=== PATIENT | female | born 1990 | race Caucasian/White ===

== ENCOUNTER 2019-09-22 23:36 | Emergency (ER) | payer MEDICAID, OTHER ==
[~2019-09-22] VITALS: Ht 167.6 cm; Wt 63.6 kg
[~2019-09-22 23:36] MED LIST: CEPH500C5 PO; DIPH-423 PO
[2019-09-22 23:39] VITALS: BP 133/81
[2019-09-23] MEDS ORDERED: HYDROcodone/acetaminophen 10/325mg tab PO ONE (00:25)
[2019-09-23] MEDS ORDERED: naproxen 500mg tablet PO ONE (00:25)
[2019-09-23] MEDS ORDERED: amox tr/potassium clavulanate 875/125mg TAB PO ONE (00:25)
[2019-09-23] MEDS ORDERED: AMOX-580 PO (00:27)
[2019-09-23] MEDS ORDERED: HYDR-4383 PO (00:27)
[2019-09-23] MEDS ORDERED: NAPR-56 PO (00:27)
== END 2019-09-23 00:52 | disposition home or self-care (01) ==
LOC: ER 23:37
DX: K08.89 Other specified disorders of teeth and supporting structures (principal); K03.2 Erosion of teeth; G89.29 Other chronic pain; F32.9 Major depressive disorder, single episode, unspecified; R00.0 Tachycardia, unspecified; Z79.2 Long term (current) use of antibiotics; Z79.899 Other long term (current) drug therapy; Z56.0 Unemployment, unspecified
CPT/HCPCS: 99284

== ENCOUNTER 2019-10-06 21:27 | Emergency (ER) | payer MEDICAID ==
[~2019-10-06] VITALS: Ht 167.6 cm; Wt 65.0 kg
[~2019-10-06 21:27] MED LIST changes: +AMOX-580 PO; +HYDR-4383 PO; +NAPR-56 PO
[2019-10-06] MEDS ORDERED: LOPE-190 PO (22:15)
[2019-10-06] MEDS ORDERED: CHLO25CA10 PO (22:15)
[2019-10-06] MEDS ORDERED: ONDA4TAB6 PO (22:15)
[2019-10-06] MEDS ORDERED: CLON-529 PO (22:15)
[2019-10-06 22:38] VITALS: BP 134/58
== END 2019-10-06 22:42 | disposition home or self-care (01) ==
LOC: ER 21:28
DX: F10.10 Alcohol abuse, uncomplicated (principal); F19.10 Other psychoactive substance abuse, uncomplicated; R19.7 Diarrhea, unspecified; R44.2 Other hallucinations; G89.29 Other chronic pain; F32.9 Major depressive disorder, single episode, unspecified; F15.90 Other stimulant use, unspecified, uncomplicated; F11.90 Opioid use, unspecified, uncomplicated; Z56.0 Unemployment, unspecified; Z79.899 Other long term (current) drug therapy; Y90.9 Presence of alcohol in blood, level not specified
CPT/HCPCS: 93005; 99283

== ENCOUNTER 2019-11-21 15:19 | Emergency (ER) | payer MEDICAID ==
[~2019-11-21] VITALS: Ht 167.6 cm; Wt 72.0 kg
[~2019-11-21 15:19] MED LIST changes: -AMOX-580 PO; +CHLO25CA10 PO; +CLON-529 PO; +LOPE-190 PO; -NAPR-56 PO; +ONDA4TAB6 PO
[2019-11-21 15:41] VITALS: BP 132/85
== END 2019-11-21 16:07 | disposition home or self-care (01) ==
LOC: ER 15:19
DX: F11.90 Opioid use, unspecified, uncomplicated (principal); G89.29 Other chronic pain; F32.9 Major depressive disorder, single episode, unspecified; F15.90 Other stimulant use, unspecified, uncomplicated; Z56.0 Unemployment, unspecified; Z79.2 Long term (current) use of antibiotics; Z79.899 Other long term (current) drug therapy
CPT/HCPCS: 99281

== ENCOUNTER 2021-04-11 04:35 | Inpatient (IN) | payer MEDICAID ==
[~2021-04-11] VITALS: Ht 167.6 cm; Wt 65.0 kg
[~2021-04-11 04:35] MED LIST changes: -CEPH500C5 PO
[2021-04-11] MEDS ORDERED: piperacillin/tazo 3.375gm/50ml 50 ML IV STA (05:04)
[2021-04-11] MEDS ORDERED: vancomycin/NS 1 GM ADD-VANTAGE 250 ML IV ONE (05:05)
[2021-04-11] MEDS ORDERED: normal saline 1000ML IV soln IVB ONE (05:05)
[2021-04-11] MEDS ORDERED: ketorolac trometh. 30mg/ml inj. IV ONE (05:05)
[2021-04-11 05:51] LABS: BASOPHILS % (AUTO) 0.5 % (0-1); EOSINOPHILS # (AUTO) 0.4 X10'3 (0-0.9); EOSINOPHILS % (AUTO) 4.5 % (0-6); HEMATOCRIT 33.8 % (35.0-45.0); HEMOGLOBIN 11.6 g/dl (12.0-16.0); LYMPHOCYTES # (AUTO) 1.9 X10'3 (1.1-4.8); LYMPHOCYTES % (AUTO) 20.7 % (21-51); MEAN CORPUSCULAR HGB CONC 34.4 g/dL (33.0-36.5); MEAN CORPUSCULAR VOLUME 81.5 FL (78-98); MEAN PLATELET VOLUME 7.9 FL (7.4-10.4); MONOCYTES # (AUTO) 0.9 X10'3 (0-0.9); MONOCYTES % (AUTO) 9.7 % (2-12); NEUTROPHILS # (AUTO) 5.9 X10'3 (1.8-7.7); NEUTROPHILS % (AUTO) 64.6 % (42-75); PLATELET COUNT 236 X10'3 (140-440); RED BLOOD COUNT 4.14 X10'6 (4.20-5.60); RED CELL DISTRIBUTION WIDTH 13.5 % (11.5-14.5); WHITE BLOOD COUNT 9.1 X10'3 (4.5-11.0)
[2021-04-11 06:04] LABS: ALANINE AMINOTRANSFERASE 47 U/L (12-78); ALBUMIN 3.1 G/DL (3.4-5.0); ALBUMIN/GLOBULIN RATIO 0.6 (1.1-1.5); ALKALINE PHOSPHATASE 107 IU/L (46-116); ANION GAP 8 (8-16); ASPARTATE AMINO TRANSFERASE 31 U/L (10-37); BILIRUBIN,TOTAL 1.1 MG/DL (0.1-1.0); BLOOD UREA NITROGEN 10 MG/DL (7-18); BUN/CREATININE RATIO 13.3 (6.6-38.0); CALCIUM 8.6 MG/DL (8.5-10.1); CHLORIDE 101 MMOL/L (99-107); CREATININE 0.75 MG/DL (0.40-0.90); POTASSIUM 3.8 MMOL/L (3.5-5.1); SODIUM 138 MMOL/L (135-145); TOTAL CARBON DIOXIDE 29.4 MMOL/L (24-32); eGFR 90 ML/MIN
[2021-04-11 06:12] LABS: URINE HCG NEGATIVE (NEG)
[2021-04-11 06:23] LABS: GLUCOSE 93 MG/DL (70-104)
[2021-04-11] MEDS ORDERED: folic acid 1mg tablet PO SCH (08:00)
[2021-04-11] MEDS ORDERED: magnesium 4gm in 100ml NS 100 ML IV PRN (08:00)
[2021-04-11] MEDS ORDERED: LORazepam 2 mg/ml vial IV PRN ×2 (08:00→13:15)
[2021-04-11] MEDS ORDERED: mag hydrox/Alum hydrox/simeth 30ml oral suspension PO PRN (08:00)
[2021-04-11] MEDS ORDERED: magnesium hydroxide 30ml (MOM) UD suspension PO PRN (08:00)
[2021-04-11] MEDS ORDERED: enoxaparin 40mg/0.4ml syringe SQ SCH (08:00)
[2021-04-11] MEDS ORDERED: multivitamins, therapeutics tablet PO SCH (08:00)
[2021-04-11] MEDS ORDERED: ondansetron/PF 4mg/2ml inj IV PRN (08:00)
[2021-04-11] MEDS ORDERED: thiamine 100mg tablet PO SCH (08:00)
[2021-04-11] MEDS ORDERED: acetaminophen 325mg tablet PO PRN (08:00)
[2021-04-11] MEDS ORDERED: haloperidol lactate 5mg/ml inj IM PRN ×2 (08:00→13:15)
[2021-04-11] MEDS ORDERED: haloperidol 5mg tablet PO PRN ×2 (08:00→13:15)
[2021-04-11] MEDS ORDERED: potassium Cl 20 mEq SR tablet PO PRN ×2 (08:00)
[2021-04-11] MEDS ORDERED: magnesium 2GM in 50ml NS 50 ML IV PRN (08:00)
[2021-04-11] MEDS ORDERED: potassium Cl 40MEQ/1/2NS 520ml 520 ML IV PRN ×2 (08:00)
[2021-04-11] MEDS: K and/or MAG REPLACEMENT MC SCH ×2 (08:23→19:58)
[2021-04-11] MEDS ORDERED: LORazepam 0.5 MG tablet PO PRN ×2 (08:35→08:45)
--- NOTE | 2021-04-11 08:54 | NUR ---
HR in 120s. Patient states she feels anxious. Dr. Christopher at bedside, updated on pt condition. Orders to give one time dose of PO ativan.
[2021-04-11] MEDS: clindamycin 600mg/D5W 50ml 50 ML IV SCH ×3 (09:02→19:57)
--- NOTE | 2021-04-11 12:17 | NUR ---
Patient in room ED 8. I have received report from Opal HEIN ED and had the opportunity to ask questions and assume patient care.
[2021-04-11] MEDS ORDERED: NO HOME MEDS (12:21)
--- NOTE | 2021-04-11 13:15 | NUR ---
PAGER ID: [phone] MESSAGE: Virginie Mcgowanhop 355B- Pt's last Heroin/meth injection was yesterday, habitual user for the last few years. ETOH last week? Cellulitis d/t IV drug shot on the yasemin. If you are OK, can we please put in protocols? Thank you. Griselda Colon [id number]
[2021-04-11] MEDS: normal saline 1000ml 1,000 ML IV SCH (14:12)
--- NOTE | 2021-04-11 14:40 | NUR ---
PAGER ID: [phone] MESSAGE: Abby-Surg [id number] Re: 355B patient has no pain medication ordered. Pain 05/01
[2021-04-11] MEDS ORDERED: HYDROmorphone 1 mg/ml syringe IV PRN (14:45)
[2021-04-11] MEDS: HYDROcodone/acetaminophen 10/325mg tab PO PRN ×2 (15:03→20:06)
[2021-04-11] MEDS ORDERED: piperacillin/tazo 4.5gm/100ml 100 ML IV SCH (16:00)
[2021-04-11 18:00] VITALS: BP 111/67
--- NOTE | 2021-04-11 18:40 | NUR ---
Patient in room 355B. I have received report from ANGEL LUIS Villalobos and had the opportunity to ask questions and assume patient care.
[2021-04-11] MEDS: rivaroxaban 15mg tablet PO SCH (18:56)
[2021-04-11] MEDS: vancomycin/NS 1 GM ADD-VANTAGE 250 ML IV SCH (19:58)
[2021-04-11] MEDS: lactobacillus rhamnosus 10,000 MMU CELLS/CAPSULE PO SCH (19:58)
[2021-04-12] VITALS: BP 131/80
[2021-04-12] MEDS: clindamycin 600mg/D5W 50ml 50 ML IV SCH ×4 (01:01→23:21)
[2021-04-12] MEDS: normal saline 1000ml 1,000 ML IV SCH ×3 (01:01→23:37)
[2021-04-12] MEDS: vancomycin/NS 1 GM ADD-VANTAGE 250 ML IV SCH ×2 (05:02→23:24)
[2021-04-12] MEDS: HYDROmorphone inj. 0.5 MG/0.5 ML DISP.SYRIN IV PRN ×3 (05:24→18:10)
[2021-04-12 06:32] LABS: BASOPHILS % (AUTO) 0.5 % (0-1); EOSINOPHILS # (AUTO) 0.3 X10'3 (0-0.9); EOSINOPHILS % (AUTO) 3.2 % (0-6); HEMATOCRIT 29.9 % (35.0-45.0); HEMOGLOBIN 10.3 g/dl (12.0-16.0); LYMPHOCYTES # (AUTO) 1.8 X10'3 (1.1-4.8); LYMPHOCYTES % (AUTO) 22.8 % (21-51); MEAN CORPUSCULAR HEMOGLOBIN 28.5 PG (27.0-31.0); MEAN CORPUSCULAR HGB CONC 34.6 g/dL (33.0-36.5); MEAN CORPUSCULAR VOLUME 82.3 FL (78-98); MEAN PLATELET VOLUME 8.2 FL (7.4-10.4); MONOCYTES # (AUTO) 0.9 X10'3 (0-0.9); NEUTROPHILS # (AUTO) 5.1 X10'3 (1.8-7.7); NEUTROPHILS % (AUTO) 62.5 % (42-75); PLATELET COUNT 213 X10'3 (140-440); RED BLOOD COUNT 3.64 X10'6 (4.20-5.60); RED CELL DISTRIBUTION WIDTH 13.3 % (11.5-14.5); WHITE BLOOD COUNT 8.1 X10'3 (4.5-11.0)
--- NOTE | 2021-04-12 06:51 | NUR ---
Problems reprioritized. Patient report given, questions answered & plan of care reviewed with ANGEL LUIS Daniels.
[2021-04-12 07:00] VITALS: BP 116/64
--- NOTE | 2021-04-12 07:16 | NUR ---
Patient in room [facility] 355. I have received report from Marlee HEIN and had the opportunity to ask questions and assume patient care.
[2021-04-12] MEDS: lactobacillus rhamnosus 10,000 MMU CELLS/CAPSULE PO SCH ×2 (07:51→20:45)
[2021-04-12] MEDS: folic acid 1mg tablet PO SCH (07:52)
[2021-04-12] MEDS: multivitamins, therapeutics tablet PO SCH (07:52)
[2021-04-12] MEDS: thiamine 100mg tablet PO SCH (07:53)
[2021-04-12] MEDS: rivaroxaban 15mg tablet PO SCH ×2 (07:53→18:09)
[2021-04-12] MEDS: K and/or MAG REPLACEMENT MC SCH ×2 (08:24→20:00)
[2021-04-12 08:25] LABS: ALANINE AMINOTRANSFERASE 41 U/L (12-78); ALBUMIN 2.5 G/DL (3.4-5.0); ALBUMIN/GLOBULIN RATIO 0.5 (1.1-1.5); ALKALINE PHOSPHATASE 94 IU/L (46-116); AMYLASE 25 U/L (25-115); ANION GAP 9 (8-16); ASPARTATE AMINO TRANSFERASE 28 U/L (10-37); BILIRUBIN,TOTAL 0.6 MG/DL (0.1-1.0); BLOOD UREA NITROGEN 9 MG/DL (7-18); BUN/CREATININE RATIO 13.8 (6.6-38.0); CALCIUM 8.1 MG/DL (8.5-10.1); CHLORIDE 106 MMOL/L (99-107); CREATININE 0.65 MG/DL (0.40-0.90); GLUCOSE 101 MG/DL (70-104); LIPASE 91 U/L (73-393); MAGNESIUM 1.7 MG/DL (1.5-2.4); PHOSPHORUS 2.7 MG/DL (2.3-4.5); POTASSIUM 3.7 MMOL/L (3.5-5.1); SODIUM 140 MMOL/L (135-145); TOTAL CARBON DIOXIDE 25.2 MMOL/L (24-32); TOTAL PROTEIN 7.1 G/DL (6.4-8.2); eGFR > 90 ML/MIN
[2021-04-12] MEDS: HYDROcodone/acetaminophen 10/325mg tab PO PRN ×3 (08:55→22:50)
[2021-04-12 11:00] VITALS: BP 111/67
[2021-04-12] MEDS ORDERED: VANCOMYCIN LEVEL IV ONE (16:30)
[2021-04-12] MEDS: piperacillin/tazo 3.375gm/50ml 50 ML IV SCH (16:41)
[2021-04-12] MEDS ORDERED: iohexol 300mg/ml 100ml inj. ONE (17:29)
[2021-04-12 17:45] LABS: FERRITIN 87 NG/ML (8-252)
[2021-04-12 17:46] LABS: CLARITY,URINE CLOUDY (Clear); COLOR,URINE YELLOW (Yellow); GLUCOSE, URINE NEGATIVE (Neg); KETONES,URINE NEGATIVE (Neg); LEUKOCYTE ESTERASE ,URINE NEGATIVE (Neg); NITRITES, URINE NEGATIVE (Neg); OCCULT BLOOD,URINE NEGATIVE (Neg); PROTEIN,URINE NEGATIVE (Neg)
[2021-04-12 17:49] LABS: UA COLLECTION TYPE NON-SPECIFIED
[2021-04-12 17:55] LABS: URINE AMPHETAMINE SCREEN POSITIVE (Neg); URINE BARBITUATE SCREEN NEGATIVE (Neg); URINE BENZODIAZEPINES SCREEN NEGATIVE (Neg); URINE CANNABINOID SCREEN NEGATIVE (Neg); URINE COCAINE SCREEN POSITIVE (Neg); URINE METHADONE SCREEN NEGATIVE (Neg); URINE OPIATE SCREEN POSITIVE (Neg); URINE PHENCYCLIDINE SCREEN NEGATIVE (Neg)
[2021-04-12 17:59] LABS: SQUAMOUS EPITHELIAL CELL,UR MANY /LPF (FEW)
[2021-04-12 18:00] LABS: % IRON SATURATION 6 % (11-46); IRON 18 UG/DL (49-151); TOTAL IRON BINDING CAPACITY 289 UG/DL (259-388)
[2021-04-12 18:00] LABS: WBC,URINE 0-4 /HPF (0-4)
[2021-04-12 18:01] LABS: BACTERIA,URINE FEW /HPF (Neg); MUCUS STRANDS FEW /LPF (Neg); RBC,URINE 0-2 /HPF (0-2)
--- NOTE | 2021-04-12 18:20 | NUR ---
Patient in room [facility] 355. I have received report from Frances HEIN and had the opportunity to ask questions and assume patient care.
--- NOTE | 2021-04-12 18:39 | NUR ---
Problems reprioritized. Patient report given, questions answered & plan of care reviewed with Kathy HEIN.
[2021-04-12 19:00] VITALS: BP 120/78
--- NOTE | 2021-04-12 23:51 | NUR ---
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 NUrses unable to start a new PIV at the time, and notified geothermal powerplant supervisor SHENG. Called pharmacy as antibiotics obviously late. Pharmacist Mercedes advised to infuse the cleocin first, then vanco, then midnight zosyn to catch up. As we now have 2 PIV, cleocin was administered at 2321, and Vancomycin at 2324. Zosyn to be administered shortly.
[2021-04-13] MEDS: piperacillin/tazo 3.375gm/50ml 50 ML IV SCH ×2 (00:14→08:22)
[2021-04-13 01:00] VITALS: BP 127/77
[2021-04-13] MEDS ORDERED: vancomycin/NS 1 GM ADD-VANTAGE 250 ML IV SCH ×2 (02:03→07:00)
[2021-04-13] MEDS: clindamycin 600mg/D5W 50ml 50 ML IV SCH ×2 (03:03→08:24)
[2021-04-13] MEDS: normal saline 1000ml 1,000 ML IV SCH (05:15)
--- NOTE | 2021-04-13 06:13 | NUR ---
Problems reprioritized. Patient report given, questions answered & plan of care reviewed with Frances HEIN.
[2021-04-13 06:14] LABS: BASOPHILS % (AUTO) 0.5 % (0-1); EOSINOPHILS # (AUTO) 0.3 X10'3 (0-0.9); EOSINOPHILS % (AUTO) 5.2 % (0-6); HEMATOCRIT 29.4 % (35.0-45.0); LYMPHOCYTES # (AUTO) 1.6 X10'3 (1.1-4.8); LYMPHOCYTES % (AUTO) 24.3 % (21-51); MEAN CORPUSCULAR HEMOGLOBIN 27.8 PG (27.0-31.0); MEAN CORPUSCULAR HGB CONC 34.1 g/dL (33.0-36.5); MEAN CORPUSCULAR VOLUME 81.7 FL (78-98); MONOCYTES # (AUTO) 0.5 X10'3 (0-0.9); MONOCYTES % (AUTO) 8.4 % (2-12); NEUTROPHILS % (AUTO) 61.6 % (42-75); PLATELET COUNT 211 X10'3 (140-440); RED CELL DISTRIBUTION WIDTH 13.3 % (11.5-14.5); WHITE BLOOD COUNT 6.4 X10'3 (4.5-11.0)
[2021-04-13 06:35] VITALS: BP 117/70
--- NOTE | 2021-04-13 06:36 | NUR ---
Preceptor documentation: I have reviewed and agree with all interventions, assessments performed and documented by Rosy HEIN.
[2021-04-13 06:46] LABS: ALANINE AMINOTRANSFERASE 36 U/L (12-78); ALBUMIN 2.2 G/DL (3.4-5.0); ALBUMIN/GLOBULIN RATIO 0.5 (1.1-1.5); ALKALINE PHOSPHATASE 90 IU/L (46-116); AMYLASE 23 U/L (25-115); ANION GAP 10 (8-16); ASPARTATE AMINO TRANSFERASE 30 U/L (10-37); BILIRUBIN,TOTAL 0.6 MG/DL (0.1-1.0); BLOOD UREA NITROGEN 6 MG/DL (7-18); BUN/CREATININE RATIO 9.2 (6.6-38.0); CALCIUM 8.1 MG/DL (8.5-10.1); CHLORIDE 105 MMOL/L (99-107); CREATININE 0.65 MG/DL (0.40-0.90); GLUCOSE 92 MG/DL (70-104); LIPASE < 50 U/L (73-393); MAGNESIUM 1.9 MG/DL (1.5-2.4); PHOSPHORUS 4.9 MG/DL (2.3-4.5); POTASSIUM 3.8 MMOL/L (3.5-5.1); SODIUM 139 MMOL/L (135-145); TOTAL CARBON DIOXIDE 23.7 MMOL/L (24-32); TOTAL PROTEIN 6.7 G/DL (6.4-8.2); eGFR > 90 ML/MIN
[2021-04-13] MEDS: K and/or MAG REPLACEMENT MC SCH (08:00)
[2021-04-13] MEDS ORDERED: LORazepam 1 MG tablet PO PRN ×2 (08:00→13:15)
[2021-04-13] MEDS ORDERED: LORazepam 2 mg/ml vial IV PRN ×2 (08:00→13:15)
[2021-04-13] MEDS: rivaroxaban 15mg tablet PO SCH (08:22)
[2021-04-13] MEDS: thiamine 100mg tablet PO SCH (08:22)
[2021-04-13] MEDS: lactobacillus rhamnosus 10,000 MMU CELLS/CAPSULE PO SCH (08:22)
[2021-04-13] MEDS: multivitamins, therapeutics tablet PO SCH (08:23)
[2021-04-13] MEDS: HYDROcodone/acetaminophen 10/325mg tab PO PRN (08:23)
[2021-04-13] MEDS: folic acid 1mg tablet PO SCH (08:23)
[2021-04-13] MEDS ORDERED: LACT1CAP26 PO (09:31)
[2021-04-13] MEDS ORDERED: folic acid tablet PO (09:31)
[2021-04-13] MEDS ORDERED: MULT-25 PO (09:31)
[2021-04-13] MEDS ORDERED: thiamine tablet PO (09:31)
[2021-04-13] MEDS ORDERED: RIVA15TA PO (09:31)
[2021-04-13] MEDS ORDERED: THIA50TA10 PO (09:33)
[2021-04-13] MEDS ORDERED: FOLI0.4T6 PO (09:33)
[2021-04-13] MEDS ORDERED: LINE600T11 PO (09:33)
--- NOTE | 2021-04-13 13:15 | NUR ---
Pt requested pain medication for discharge. Dr Rios stated the pt may take Ibuprofen OTC prn pain. Pt instructed of same, which was handwritten on DC instructions. Pt denied any questions. Auxillary notified for DC via WC.
--- NOTE | 2021-04-13 13:32 | NUR ---
Patient was educated on medications, follow-up care, and worsening symptoms. I explained the importance of setting up a PCP to continue her Xarelto. I stressed the importance of taking antibiotics as prescribed until it is completely finished. Patient stated that she wanted to leave her two IV's in place. I let her know that I could not allow her to leave with them in. She was also upset that the Dr. had not prescribed any pain medications. DR was paged and ibuprofen was given. Two IV's were removed and canula was intact.
[2021-04-14] MEDS ORDERED: VANCOMYCIN LEVEL IV ONE (06:30)
[2021-04-15] MEDS ORDERED: LORazepam 1 MG tablet PO PRN (13:15)
[2021-04-15] MEDS ORDERED: LORazepam 2 mg/ml vial IV PRN (13:15)
== END 2021-04-13 13:19 | disposition home health service (06) | DRG 197 ==
LOC: ER 04:36 → ED HOLD 07:58 → SUR 3N 12:28
PROVIDERS: ADMIT Family Medicine; ATTEND Family Medicine
PROC: BQ2R1ZZ Computerized Tomography (CT Scan) of Right Lower Extremity using Low Osmolar Contrast (ICD-10-PCS; principal; 2021-04-12)
DX: I82.811 Embolism and thrombosis of superficial veins of right lower extremity (principal); F11.20 Opioid dependence, uncomplicated; L03.115 Cellulitis of right lower limb; F15.20 Other stimulant dependence, uncomplicated; D63.8 Anemia in other chronic diseases classified elsewhere; F32.9 Major depressive disorder, single episode, unspecified; D50.9 Iron deficiency anemia, unspecified; G89.29 Other chronic pain; M54.9 Dorsalgia, unspecified; Z79.01 Long term (current) use of anticoagulants; Z71.51 Drug abuse counseling and surveillance of drug abuser
CPT/HCPCS: 36415; 73701; 80053; 80202; 80305; 80320; 81001; 81025; 82150; 82728; 82948; 83540; 83550; 83605; 83690; 83735; 84100; 84145; 85025; 85610; 87040; 87081; 93971; 96374; 99285; G0378; J1170; J1650; J1885; J2060; J2543; J3370; J3490; J7030; Q9967